=== PATIENT | male | born 1985 | race Caucasian/White ===

== ENCOUNTER 2018-05-12 13:22 | Emergency (ER) | payer OTHER ==
[~2018-05-12] VITALS: Ht 188 cm; Wt 83.9 kg
== END 2018-05-12 20:19 | disposition home or self-care (01) ==
LOC: ER 13:22
DX: S20.212A Contusion of left front wall of thorax, initial encounter (principal); S20.211A Contusion of right front wall of thorax, initial encounter; W18.39XA Other fall on same level, initial encounter; Y93.89 Activity, other specified; Y92.89 Other specified places as the place of occurrence of the external cause; Y99.8 Other external cause status

== ENCOUNTER → 2018-05-12 | Emergency (ER) | payer OTHER ==
[~2018-05-12] VITALS: Ht 182.9 cm; Wt 83.9 kg
== END | disposition left against medical advice (07) ==
LOC: ER 01:16
DX: Z53.20 Procedure and treatment not carried out because of patient's decision for unspecified reasons (principal)